=== PATIENT | female | born 2000 | race Caucasian/White ===

== ENCOUNTER → 2023-10-09 12:04 | Outpatient (REF) | payer BC, SELFPAY ==
[2023-10-09 15:08] LABS: % Basophils 0.5 % (0-2); % Eosinophils 0.9 % (0-6); % Immature Granulocytes 0.3 % (0-0.5); % Lymphocytes 21.7 % (20.5-51.1); % Monocytes 5.9 % (1.7-9.3); % Neutrophils 70.7 % (42.2-75.2); Absolute Eosinophils 0.1 10^3/uL (0-0.7); Absolute Lymphocytes 1.7 10^3/uL (1.2-3.4); Absolute Monocytes 0.5 10^3/uL (0.1-0.6); Absolute Neutrophils 5.5 10^3/uL (1.4-6.5); Hematocrit 37.1 % (37.0-47.0); Hemoglobin 12.1 g/dL (12.0-16.0); Mean Corp Hgb Conc. 32.6 g/dL (33.0-37.0); Mean Corpuscular Hgb 25.5 pg (27.0-31.0); Mean Corpuscular Volume 78.1 fL (81.0-99.0); Mean Platelet Volume 11.8 fL (7.4-10.4); Nucleated Red Blood Cells % 0 %; Platelet Count 297 10^3/uL (130-400); Red Blood Cell Count 4.75 10^6/uL (4.20-5.40); Red Cell Dist. Width 13.4 % (11.5-14.5); White Blood Cell Count 7.8 10^3/uL (4.8-10.8)
[2023-10-09 15:16] LABS: ALT (SGPT) 18 U/L (0-35); AST (SGOT) 25 U/L (14-36); Albumin 4.4 g/dl (3.5-5.0); Alkaline Phosphatase 66 U/L (38-126); Blood Urea Nitrogen 11 mg/dl (7-17); Calcium 9.8 mg/dl (8.4-10.2); Carbon Dioxide 23 mmol/L (22-30); Chloride 104 mmol/L (98-107); Glucose 83 mg/dl (70-99); Potassium 4.2 mmol/L (3.5-5.1); Sodium 140 mmol/L (135-145); Total Bilirubin 0.3 mg/dl (0.2-1.3); Total Protein 7.5 g/dl (6.3-8.2); eGFR > 60.00
[2023-10-11 10:56] LABS: Iron 58 ug/dl (37-170)
[2023-10-11 11:05] LABS: Percent Saturation 13 % (20-50); Total Iron Binding Capacity 427 ug/dl (265-497)
== END ==
LOC: HWRAD 12:04
PROVIDERS: ATTENDING PHYSICIAN Nurse Practitioner; REFERRING PHYSICIAN Internal Medicine
DX: R10.32 Left lower quadrant pain (principal); R11.0 Nausea; K92.1 Melena; R19.7 Diarrhea, unspecified
CPT/HCPCS: 36415; 74177; 80053; 83540; 83550; 85025; Q9967

== ENCOUNTER → 2023-10-23 11:34 | Outpatient (REF) | payer BC, SELFPAY | LOC: HWLAB 11:34 | PROVIDERS: ATTENDING PHYSICIAN Internal Medicine; FAMILY PHYSICIAN Nurse Practitioner | DX: K92.1 Melena (principal); R19.5 Other fecal abnormalities | CPT/HCPCS: 82653; 83993; 87045; 87046; 87328; 87329; 87427 ==

== ENCOUNTER → 2023-10-24 10:16 | Outpatient (REF) | payer BC, SELFPAY ==
[2023-10-24 12:17] LABS: Erythrocyte Sed Rate 45 mm/hour (0-20)
[2023-10-24 12:39] LABS: Ferritin 8.2 ng/ml (6.24-137)
[2023-10-25 11:44] LABS: tTG IgA Antibody 7.1 EU/ml (0-19)
[2023-10-25 23:09] LABS: IgA 109 mg/dl (70-400)
== END ==
LOC: HWLAB 10:16
PROVIDERS: ATTENDING PHYSICIAN Internal Medicine; FAMILY PHYSICIAN Nurse Practitioner
DX: R19.4 Change in bowel habit (principal); D64.9 Anemia, unspecified
CPT/HCPCS: 36415; 82728; 82784; 83516; 85652

== ENCOUNTER → 2023-10-31 10:35 | Outpatient (REF) | payer BC, SELFPAY ==
[2023-10-31 16:06] LABS: Free T3 3.37 pg/ml (2.77-5.27); Free T4 1.26 ng/dl (0.78-2.19)
[2023-10-31 16:20] LABS: TSH 1.05 uIU/ml (0.47-4.68)
[2023-11-02 16:13] LABS: Thyroglobulin Antibodies <0.9 IU/mL (0.0-4.0); Thyroid Peroxidase Ab (TPO) <0.3 IU/mL (0.0-9.0)
== END ==
LOC: HWLAB 10:35
PROVIDERS: ATTENDING PHYSICIAN Internal Medicine; FAMILY PHYSICIAN Nurse Practitioner
DX: R19.4 Change in bowel habit (principal)
CPT/HCPCS: 36415; 84439; 84443; 84481; 86140; 86376; 86800

== ENCOUNTER → 2023-11-02 06:25 | Day surgery (SDC) | payer BC, SELFPAY | LOC: GI 06:25 | PROVIDERS: ATTENDING PHYSICIAN Internal Medicine | DX: K52.9 Noninfective gastroenteritis and colitis, unspecified (principal) | CPT/HCPCS: 45380; 88305; 88342 ==

== ENCOUNTER → 2024-02-13 06:27 | Day surgery (SDC) | payer BC, SELFPAY | LOC: GI 06:27 | PROVIDERS: ATTENDING PHYSICIAN Internal Medicine | DX: K52.9 Noninfective gastroenteritis and colitis, unspecified (principal); K52.89 Other specified noninfective gastroenteritis and colitis | CPT/HCPCS: 45380; 88305 ==

== ENCOUNTER → 2024-02-27 06:33 | Outpatient (REF) | payer BC, SELFPAY ==
[2024-02-27 09:40] LABS: ALT (SGPT) 20 U/L (0-35); AST (SGOT) 24 U/L (14-36); Albumin 4.1 g/dl (3.5-5.0); Alkaline Phosphatase 54 U/L (38-126); Blood Urea Nitrogen 8 mg/dl (7-17); Calcium 9.2 mg/dl (8.4-10.2); Carbon Dioxide 28 mmol/L (22-30); Chloride 103 mmol/L (98-107); Glucose 90 mg/dl (70-99); Iron 46 ug/dl (37-170); Potassium 4.2 mmol/L (3.5-5.1); Sodium 142 mmol/L (135-145); Total Bilirubin 0.3 mg/dl (0.2-1.3); Total Protein 7.2 g/dl (6.3-8.2); eGFR > 60.00
[2024-02-27 09:41] LABS: % Basophils 0.6 % (0-2); % Eosinophils 1.7 % (0-6); % Immature Granulocytes 0.3 % (0-0.5); % Lymphocytes 35.6 % (20.5-51.1); % Monocytes 6.9 % (1.7-9.3); % Neutrophils 54.9 % (42.2-75.2); Absolute Basophils 0.1 10^3/uL (0-0.2); Absolute Eosinophils 0.1 10^3/uL (0-0.7); Absolute Lymphocytes 2.8 10^3/uL (1.2-3.4); Absolute Monocytes 0.5 10^3/uL (0.1-0.6); Absolute Neutrophils 4.3 10^3/uL (1.4-6.5); Hematocrit 37.7 % (37.0-47.0); Hemoglobin 11.5 g/dL (12.0-16.0); Mean Corp Hgb Conc. 30.5 g/dL (33.0-37.0); Mean Corpuscular Hgb 24.3 pg (27.0-31.0); Mean Corpuscular Volume 79.7 fL (81.0-99.0); Mean Platelet Volume 10.4 fL (7.4-10.4); Nucleated Red Blood Cells % 0 %; Platelet Count 315 10^3/uL (130-400); Red Blood Cell Count 4.73 10^6/uL (4.20-5.40); Red Cell Dist. Width 14.9 % (11.5-14.5); White Blood Cell Count 7.8 10^3/uL (4.8-10.8)
[2024-02-27 09:49] LABS: Percent Saturation 10 % (20-50); Total Iron Binding Capacity 431 ug/dl (265-497)
[2024-02-27 10:01] LABS: Vitamin D, 25-OH*** 37.5 ng/mL (30-80)
[2024-02-27 10:34] LABS: Vitamin B12 266 pg/ml (239-931)
[2024-02-27 10:37] LABS: Erythrocyte Sed Rate 50 mm/hour (0-20)
[2024-02-29 14:08] LABS: Quantiferon Mitogen minus NIL 9.98 IU/mL; Quantiferon NIL 0.02 IU/mL; Quantiferon Plus TB1 minus NIL 0.06 IU/mL (<=0.34); Quantiferon Plus TB2 minus NIL 0.05 IU/mL (<=0.34); Quantiferon TB Gold Plus Negative (Negative)
== END ==
LOC: HWLAB 06:33
PROVIDERS: ATTENDING PHYSICIAN Internal Medicine; FAMILY PHYSICIAN Internal Medicine
DX: K50.919 Crohn's disease, unspecified, with unspecified complications (principal)
CPT/HCPCS: 36415; 80053; 82306; 82607; 82728; 83540; 83550; 83993; 85025; 85652; 86140; 86480; 86704; 86706; 87340

== ENCOUNTER 2024-04-29 14:16 | Outpatient (RCR) | payer BC, SELFPAY ==
[2024-04-22 14:35] VITALS: BP 144/75
[2024-04-22] MEDS: INJECTAFER 265 MG IV (14:51)
[2024-04-22 15:28] VITALS: BP 143/78
[2024-04-29 14:43] LABS: % Basophils 0.5 % (0-2); % Eosinophils 0.9 % (0-6); % Immature Granulocytes 0.1 % (0-0.5); % Lymphocytes 22.3 % (20.5-51.1); % Monocytes 5.8 % (1.7-9.3); % Neutrophils 70.4 % (42.2-75.2); Absolute Eosinophils 0.1 10^3/uL (0-0.7); Absolute Lymphocytes 1.8 10^3/uL (1.2-3.4); Absolute Monocytes 0.5 10^3/uL (0.1-0.6); Absolute Neutrophils 5.6 10^3/uL (1.4-6.5); Hematocrit 37.2 % (37.0-47.0); Hemoglobin 11.9 g/dL (12.0-16.0); Mean Corpuscular Hgb 25.1 pg (27.0-31.0); Mean Corpuscular Volume 78.5 fL (81.0-99.0); Mean Platelet Volume 10.2 fL (7.4-10.4); Platelet Count 308 10^3/uL (130-400); Red Blood Cell Count 4.74 10^6/uL (4.20-5.40); Red Cell Dist. Width 15.2 % (11.5-14.5)
[2024-04-29] MEDS: INJECTAFER 265 MG IV (14:47)
[2024-04-29 15:03] VITALS: BP 136/77
[2024-04-29 15:47] VITALS: BP 124/75
== END 2024-04-30 09:03 | disposition home or self-care (01) ==
LOC: OID 14:16
PROVIDERS: ATTENDING PHYSICIAN Internal Medicine Hematology & Oncology; FAMILY PHYSICIAN Internal Medicine
DX: D50.9 Iron deficiency anemia, unspecified (principal); K50.818 Crohn's disease of both small and large intestine with other complication; D51.9 Vitamin B12 deficiency anemia, unspecified
CPT/HCPCS: 84100; 85025; 96365; J1439

== ENCOUNTER → 2024-05-10 14:41 | Outpatient (REF) | payer BC, SELFPAY | LOC: MRI 3T 14:41 | PROVIDERS: ATTENDING PHYSICIAN Internal Medicine; FAMILY PHYSICIAN Family Medicine | DX: D50.0 Iron deficiency anemia secondary to blood loss (chronic) (principal); K50.919 Crohn's disease, unspecified, with unspecified complications; R10.30 Lower abdominal pain, unspecified | CPT/HCPCS: 72197; 74183; A9575 ==

== ENCOUNTER → 2024-05-15 06:47 | Outpatient (REF) | payer BC, SELFPAY ==
[2024-05-15 09:28] LABS: % Basophils 0.3 % (0-2); % Eosinophils 1.3 % (0-6); % Immature Granulocytes 0.5 % (0-0.5); % Lymphocytes 23.7 % (20.5-51.1); % Monocytes 5.5 % (1.7-9.3); % Neutrophils 68.7 % (42.2-75.2); Absolute Eosinophils 0.1 10^3/uL (0-0.7); Absolute Lymphocytes 1.5 10^3/uL (1.2-3.4); Absolute Monocytes 0.3 10^3/uL (0.1-0.6); Absolute Neutrophils 4.3 10^3/uL (1.4-6.5); Hematocrit 37.3 % (37.0-47.0); Hemoglobin 12.2 g/dL (12.0-16.0); Mean Corp Hgb Conc. 32.7 g/dL (33.0-37.0); Mean Corpuscular Hgb 26.6 pg (27.0-31.0); Mean Corpuscular Volume 81.3 fL (81.0-99.0); Nucleated Red Blood Cells % 0 %; Platelet Count 219 10^3/uL (130-400); Red Blood Cell Count 4.59 10^6/uL (4.20-5.40); Red Cell Dist. Width 17.8 % (11.5-14.5); White Blood Cell Count 6.2 10^3/uL (4.8-10.8)
[2024-05-15 09:37] LABS: Phosphorus 2.2 mg/dl (2.5-4.5)
[2024-05-15 10:19] LABS: Erythrocyte Sed Rate 39 mm/hour (0-20)
[2024-05-15 10:20] LABS: TSH 2.38 uIU/ml (0.47-4.68)
[2024-05-15 18:07] LABS: Rheumatoid Agglutinin Less Than 10 IU (<10 IU)
[2024-05-15 18:48] LABS: HIV Combo Negative (Negative)
[2024-05-16 19:03] LABS: Hepatitis C Antibody Negative (Negative)
[2024-05-17 00:04] LABS: ANA, IgG Reflex to HEp-2 Detected (None Detected)
[2024-05-17 00:09] LABS: CCP Antibody IgG/IgA 4 Units (0-19)
[2024-05-17 09:52] LABS: HLA-B27 Negative (Negative)
[2024-05-18 02:27] LABS: ANA, HEp-2, IgG Detected (<1:80)
== END ==
LOC: HWLAB 06:47
PROVIDERS: ATTENDING PHYSICIAN Physician Assistant; FAMILY PHYSICIAN Internal Medicine; REFERRING PHYSICIAN Internal Medicine Hematology & Oncology
DX: D50.9 Iron deficiency anemia, unspecified (principal); D51.9 Vitamin B12 deficiency anemia, unspecified; K50.919 Crohn's disease, unspecified, with unspecified complications; Z68.30 Body mass index [BMI] 30.0-30.9, adult; E07.9 Disorder of thyroid, unspecified; K75.9 Inflammatory liver disease, unspecified; L73.2 Hidradenitis suppurativa; M06.4 Inflammatory polyarthropathy; M25.50 Pain in unspecified joint; R53.83 Other fatigue; Z11.4 Encounter for screening for human immunodeficiency virus [HIV]; Z22.7 Latent tuberculosis
CPT/HCPCS: 36415; 84100; 84443; 85025; 85652; 86038; 86039; 86140; 86200; 86430; 86803; 86812; 87389

== ENCOUNTER → 2024-06-04 06:33 | Outpatient (REF) | payer BC, SELFPAY ==
[2024-06-04 09:52] LABS: % Basophils 0.6 % (0-2); % Eosinophils 2.2 % (0-6); % Immature Granulocytes 0.3 % (0-0.5); % Lymphocytes 22.3 % (20.5-51.1); % Monocytes 7.1 % (1.7-9.3); % Neutrophils 67.5 % (42.2-75.2); Absolute Eosinophils 0.2 10^3/uL (0-0.7); Absolute Lymphocytes 1.5 10^3/uL (1.2-3.4); Absolute Monocytes 0.5 10^3/uL (0.1-0.6); Absolute Neutrophils 4.7 10^3/uL (1.4-6.5); Hematocrit 40.4 % (37.0-47.0); Hemoglobin 13.2 g/dL (12.0-16.0); Mean Corp Hgb Conc. 32.7 g/dL (33.0-37.0); Mean Corpuscular Hgb 27.3 pg (27.0-31.0); Mean Corpuscular Volume 83.5 fL (81.0-99.0); Mean Platelet Volume 10.5 fL (7.4-10.4); Nucleated Red Blood Cells % 0 %; Platelet Count 248 10^3/uL (130-400); Red Blood Cell Count 4.84 10^6/uL (4.20-5.40); Red Cell Dist. Width 16.6 % (11.5-14.5); White Blood Cell Count 6.9 10^3/uL (4.8-10.8)
[2024-06-04 10:04] LABS: Iron 91 ug/dl (37-170)
[2024-06-04 10:15] LABS: Percent Saturation 34 % (20-50); Total Iron Binding Capacity 266 ug/dl (265-497)
[2024-06-04 10:53] LABS: Vitamin B12 348 pg/ml (239-931)
[2024-06-05 19:02] LABS: ds-DNA Ab, IgG Reflex To Titer 4 IU (0-24)
[2024-06-05 22:23] LABS: Smith/RNP (ENA), IgG 50 Units (0-19)
[2024-06-05 23:45] LABS: Complement C3 164 mg/dl (88-165)
[2024-06-06 12:49] LABS: Anti-Xa Qualitative Interp Not Performed (Not Present); Anticoagulant Med Neutralizati Not Performed (Not Performed); Hexagonal Phospholipid Confirm Not Performed s (<=7.9); Neutralized PTT-LA Ratio Not Performed (<=1.20); Neutralized dRVTT Screen Ratio Not Performed (<=1.20); PTT-LA Ratio 1.02 (<=1.20); Prothrombin Time 13.6 s (12.0-15.5); Thrombin Time Not Performed s (<=19.5); dRVTT 1.1 Mix Ratio Not Performed (<=1.20); dRVTT Confirmation Ratio Not Performed (<=1.20); dRVTT Screen Ratio 1.16 (<=1.20)
[2024-06-07 01:22] LABS: SSA 52 (Ro)(ENA) Ab, IgG 1 AU/mL (0-40); SSA 60 (Ro)(ENA) Ab, IgG 0 AU/mL (0-40); SSB (La)(ENA) Ab, IgG 1 AU/mL (0-40); Scleroderma Antibody (Scl-70) 1 AU/mL (0-40)
== END ==
LOC: HWLAB 06:33
PROVIDERS: ATTENDING PHYSICIAN Internal Medicine Hematology & Oncology; FAMILY PHYSICIAN Internal Medicine; REFERRING PHYSICIAN Student in an Organized Health Care Education/Training Program
DX: K50.919 Crohn's disease, unspecified, with unspecified complications (principal); L73.2 Hidradenitis suppurativa; M25.50 Pain in unspecified joint; R53.83 Other fatigue; Z87.42 Personal history of other diseases of the female genital tract; D50.9 Iron deficiency anemia, unspecified; D51.9 Vitamin B12 deficiency anemia, unspecified; Z68.30 Body mass index [BMI] 30.0-30.9, adult
CPT/HCPCS: 36415; 82607; 82728; 83540; 83550; 85025; 85610; 85613; 85730; 86160; 86225; 86235

== ENCOUNTER → 2024-06-10 07:01 | Outpatient (REF) | payer BC, SELFPAY ==
[2024-06-10 10:08] LABS: Urine Albumin 1+ (Neg - Trace); Urine Bilirubin Negative (Negative); Urine Character Clear (Clear); Urine Color Yellow; Urine Glucose Negative (Negative); Urine Ketone Negative (Negative); Urine Leukocyte Negative (Negative); Urine Nitrite Negative (Negative); Urine Occult Blood 1+ (Negative); Urine Urobilinogen Negative (Neg - 1+)
[2024-06-10 10:18] LABS: Urine Calcium Oxalate Crystals Present
[2024-06-10 10:19] LABS: Urine Bacteria Few (Negative); Urine Red Blood Cell 0-2 /HPF (0-2)
[2024-06-10 11:02] LABS: Urine Protein 7 mg/dl
== END ==
LOC: HWLAB 07:01
PROVIDERS: ATTENDING PHYSICIAN Student in an Organized Health Care Education/Training Program; FAMILY PHYSICIAN Internal Medicine
DX: K50.919 Crohn's disease, unspecified, with unspecified complications (principal); L73.2 Hidradenitis suppurativa; M25.50 Pain in unspecified joint; R53.83 Other fatigue; Z87.42 Personal history of other diseases of the female genital tract
CPT/HCPCS: 81003; 81015; 82570; 84156

== ENCOUNTER 2024-06-24 10:40 | Outpatient (RCR) | payer BC, SELFPAY ==
[2024-06-24] VITALS (7 sets, daily range): BP systolic 109–128; BP diastolic 66–78
[2024-06-24] MEDS: SKYRIZI 260 MG IV (11:14)
== END 2024-06-25 08:41 | disposition home or self-care (01) ==
LOC: OID 10:40
PROVIDERS: ATTENDING PHYSICIAN Internal Medicine; FAMILY PHYSICIAN Internal Medicine
DX: K50.10 Crohn's disease of large intestine without complications (principal)
CPT/HCPCS: 96365; J2327

== ENCOUNTER 2024-07-22 10:39 | Outpatient (RCR) | payer BC, SELFPAY ==
[2024-07-22 10:50] VITALS: BP 131/65
[2024-07-22] MEDS: SKYRIZI 260 MG IV (10:58)
[2024-07-22 12:00] VITALS: BP 113/67
== END 2024-07-23 09:40 | disposition home or self-care (01) ==
LOC: OID 10:39
PROVIDERS: ATTENDING PHYSICIAN Internal Medicine; FAMILY PHYSICIAN Internal Medicine
DX: K50.10 Crohn's disease of large intestine without complications (principal)
CPT/HCPCS: 96365; J2327

== ENCOUNTER 2024-08-19 10:40 | Outpatient (RCR) | payer BC, SELFPAY ==
[2024-08-19 10:54] VITALS: BP 123/83
[2024-08-19] MEDS: SKYRIZI 260 MG IV (11:06)
== END 2024-08-20 12:26 | disposition home or self-care (01) ==
LOC: OID 10:40
PROVIDERS: ATTENDING PHYSICIAN Internal Medicine; FAMILY PHYSICIAN Internal Medicine
DX: K50.10 Crohn's disease of large intestine without complications (principal)
CPT/HCPCS: 96365; J2327

== ENCOUNTER → 2024-08-26 10:44 | Outpatient (REF) | payer BC, SELFPAY ==
[2024-08-26 16:08] LABS: Urine Albumin 1+ (Neg - Trace); Urine Bilirubin Negative (Negative); Urine Character Clear (Clear); Urine Color Yellow; Urine Glucose Negative (Negative); Urine Ketone Negative (Negative); Urine Leukocyte 3+ (Negative); Urine Nitrite Negative (Negative); Urine Occult Blood 2+ (Negative); Urine Specific Gravity 1.015 (<1.030); Urine Urobilinogen Negative (Neg - 1+)
[2024-08-26 16:13] LABS: ALT (SGPT) 22 U/L (0-35); AST (SGOT) 24 U/L (14-36); Albumin 4.4 g/dl (3.5-5.0); Alkaline Phosphatase 59 U/L (38-126); Blood Urea Nitrogen 11 mg/dl (7-17); Calcium 9.2 mg/dl (8.4-10.2); Carbon Dioxide 22 mmol/L (22-30); Chloride 109 mmol/L (98-107); Glucose 76 mg/dl (70-99); HDL Cholesterol 27 mg/dl; LDL Cholesterol, Calculated 109 mg/dl; Phosphorus 3.2 mg/dl (2.5-4.5); Potassium 4.5 mmol/L (3.5-5.1); Sodium 141 mmol/L (135-145); Total Bilirubin 0.4 mg/dl (0.2-1.3); Total Cholesterol 159 mg/dl (50-199); Total Protein 7.5 g/dl (6.3-8.2); Triglyceride 119 mg/dl (10-149); Very Low Density Lipoprotein 23 mg/dl (0-30); eGFR > 60.00
[2024-08-26 16:14] LABS: Creatine Phosphokinase 44 U/L (30-135); Iron 94 ug/dl (37-170)
[2024-08-26 16:18] LABS: % Basophils 0.6 % (0-2); % Eosinophils 1.1 % (0-6); % Immature Granulocytes 0.3 % (0-0.5); % Lymphocytes 24.9 % (20.5-51.1); % Monocytes 5.3 % (1.7-9.3); % Neutrophils 67.8 % (42.2-75.2); Absolute Eosinophils 0.1 10^3/uL (0-0.7); Absolute Lymphocytes 1.6 10^3/uL (1.2-3.4); Absolute Monocytes 0.3 10^3/uL (0.1-0.6); Absolute Neutrophils 4.3 10^3/uL (1.4-6.5); Hematocrit 39.2 % (37.0-47.0); Hemoglobin 13.2 g/dL (12.0-16.0); Mean Corp Hgb Conc. 33.7 g/dL (33.0-37.0); Mean Corpuscular Hgb 29.7 pg (27.0-31.0); Mean Corpuscular Volume 88.3 fL (81.0-99.0); Mean Platelet Volume 11.7 fL (7.4-10.4); Nucleated Red Blood Cells % 0 %; Platelet Count 241 10^3/uL (130-400); Red Blood Cell Count 4.44 10^6/uL (4.20-5.40); Red Cell Dist. Width 11.6 % (11.5-14.5); White Blood Cell Count 6.4 10^3/uL (4.8-10.8)
[2024-08-26 16:22] LABS: Percent Saturation 30 % (20-50); Total Iron Binding Capacity 305 ug/dl (265-497)
[2024-08-26 16:30] LABS: Urine Protein 8 mg/dl
[2024-08-26 16:42] LABS: Complement C3 142 mg/dl (88-165)
[2024-08-26 17:02] LABS: Urine Bacteria Moderate (Negative); Urine Squamous Cell 26-30 /LPF (Few)
[2024-08-26 17:06] LABS: Vitamin B12 253 pg/ml (239-931)
[2024-08-26 17:14] LABS: Erythrocyte Sed Rate 41 mm/hour (0-20)
[2024-08-29 03:14] LABS: ds-DNA Ab, IgG Reflex To Titer 8 IU (0-24)
[2024-08-29 08:59] LABS: Smith/RNP (ENA), IgG 45 Units (0-19)
== END ==
LOC: HWLAB 10:44
PROVIDERS: ATTENDING PHYSICIAN Student in an Organized Health Care Education/Training Program; FAMILY PHYSICIAN Internal Medicine; REFERRING PHYSICIAN Internal Medicine Hematology & Oncology
DX: D50.9 Iron deficiency anemia, unspecified (principal); D51.9 Vitamin B12 deficiency anemia, unspecified; K50.919 Crohn's disease, unspecified, with unspecified complications; Z68.30 Body mass index [BMI] 30.0-30.9, adult; Z00.00 Encounter for general adult medical examination without abnormal findings; L73.2 Hidradenitis suppurativa; M25.50 Pain in unspecified joint; R53.83 Other fatigue; Z87.42 Personal history of other diseases of the female genital tract
CPT/HCPCS: 36415; 80053; 80061; 81003; 81015; 82550; 82570; 82607; 82728; 83540; 83550; 84100; 84156; 85025; 85652; 86140; 86160; 86225; 86235

== ENCOUNTER → 2024-08-29 07:01 | Outpatient (REF) | payer BC, SELFPAY ==
[2024-08-29 09:36] LABS: Urine Albumin 1+ (Neg - Trace); Urine Bilirubin Negative (Negative); Urine Character Clear (Clear); Urine Color Yellow; Urine Glucose Negative (Negative); Urine Ketone Negative (Negative); Urine Leukocyte 2+ (Negative); Urine Nitrite Negative (Negative); Urine Occult Blood 3+ (Negative); Urine Urobilinogen Negative (Neg - 1+)
[2024-08-29 10:33] LABS: Urine Squamous Cell 21-25 /LPF (Few)
[2024-08-29 10:36] LABS: Urine Amorphous Seen
[2024-08-29 10:59] LABS: Urine Bacteria Many (Negative); Urine Calcium Oxalate Crystals Seen
[2024-08-29 11:00] LABS: Urine White Cell 16-20 /HPF (0-5)
== END ==
LOC: HWLAB 07:01
PROVIDERS: ATTENDING PHYSICIAN Internal Medicine; REFERRING PHYSICIAN Student in an Organized Health Care Education/Training Program
DX: N39.0 Urinary tract infection, site not specified (principal)
CPT/HCPCS: 81003; 81015; 87086

== ENCOUNTER → 2024-09-05 14:10 | Outpatient (REF) | payer BC, SELFPAY | LOC: HWRAD 14:10 | PROVIDERS: ATTENDING PHYSICIAN Student in an Organized Health Care Education/Training Program; FAMILY PHYSICIAN Internal Medicine | DX: R31.29 Other microscopic hematuria (principal) | CPT/HCPCS: 76770 ==

== ENCOUNTER → 2024-11-25 10:25 | Outpatient (REF) | payer BC, SELFPAY ==
[2024-11-25 11:34] LABS: Hematocrit 39.9 % (37.0-47.0); Hemoglobin 13.6 g/dL (12.0-16.0); Mean Corp Hgb Conc. 34.1 g/dL (33.0-37.0); Mean Corpuscular Volume 87.1 fL (81.0-99.0); Nucleated Red Blood Cells % 0 %; Platelet Count 240 10^3/uL (130-400); Red Cell Dist. Width 11.9 % (11.5-14.5)
[2024-11-25 11:54] LABS: ALT (SGPT) 14 U/L (0-35); AST (SGOT) 22 U/L (14-36); Albumin 4.7 g/dl (3.5-5.0); Alkaline Phosphatase 47 U/L (38-126); Blood Urea Nitrogen 12 mg/dl (7-17); Calcium 9.4 mg/dl (8.4-10.2); Carbon Dioxide 24 mmol/L (22-30); Chloride 105 mmol/L (98-107); Glucose 97 mg/dl (70-99); Iron 102 ug/dl (37-170); Potassium 4.2 mmol/L (3.5-5.1); Sodium 140 mmol/L (135-145); Total Protein 7.8 g/dl (6.3-8.2); eGFR > 60.00
[2024-11-25 12:03] LABS: C-Reactive Protein 13.70 mg/L (0.0-10.00); Total Iron Binding Capacity 318 ug/dl (265-497)
[2024-11-25 12:38] LABS: Ferritin 279.0 ng/ml (6.24-137)
[2024-11-25 12:52] LABS: Vitamin B12 328 pg/ml (239-931)
[2024-11-27 02:30] LABS: ds-DNA Ab, IgG Reflex To Titer 12 IU (0-24)
== END ==
LOC: HWLAB 10:25
PROVIDERS: ATTENDING PHYSICIAN Internal Medicine Hematology & Oncology; FAMILY PHYSICIAN Internal Medicine; OTHER PHYSICIAN Internal Medicine; REFERRING PHYSICIAN Student in an Organized Health Care Education/Training Program
DX: K50.919 Crohn's disease, unspecified, with unspecified complications (principal); L73.2 Hidradenitis suppurativa; M25.50 Pain in unspecified joint; R31.29 Other microscopic hematuria; R53.83 Other fatigue; R76.8 Other specified abnormal immunological findings in serum; Z51.81 Encounter for therapeutic drug level monitoring; Z87.42 Personal history of other diseases of the female genital tract; D50.9 Iron deficiency anemia, unspecified; D51.9 Vitamin B12 deficiency anemia, unspecified; Z68.30 Body mass index [BMI] 30.0-30.9, adult
CPT/HCPCS: 36415; 80053; 82085; 82550; 82607; 82728; 83540; 83550; 84100; 85025; 85652; 86140; 86160; 86225

== ENCOUNTER → 2025-02-19 10:52 | Outpatient (REF) | payer BC, SELFPAY ==
[2025-02-19 15:46] LABS: Hematocrit 41.5 % (37.0-47.0); Hemoglobin 13.7 g/dL (12.0-16.0); Mean Corp Hgb Conc. 33.0 g/dL (33.0-37.0); Mean Corpuscular Volume 87.6 fL (81.0-99.0); Nucleated Red Blood Cells % 0 %; Platelet Count 231 10^3/uL (130-400); Red Cell Dist. Width 11.6 % (11.5-14.5)
[2025-02-19 15:47] LABS: Urine Character Slightly Cloudy (Clear)
[2025-02-19 16:02] LABS: C-Reactive Protein 12.30 mg/L (0.0-10.00)
[2025-02-19 16:06] LABS: ALT (SGPT) 15 U/L (0-35); AST (SGOT) 25 U/L (14-36); Albumin 4.6 g/dl (3.5-5.0); Alkaline Phosphatase 41 U/L (38-126); Blood Urea Nitrogen 10 mg/dl (7-17); Calcium 9.3 mg/dl (8.4-10.2); Carbon Dioxide 26 mmol/L (22-30); Chloride 105 mmol/L (98-107); Glucose 81 mg/dl (70-99); Potassium 4.4 mmol/L (3.5-5.1); Sodium 140 mmol/L (135-145); Total Protein 7.7 g/dl (6.3-8.2); eGFR > 60.00
[2025-02-19 17:54] LABS: Urine Squamous Cell >30 /LPF (Few)
== END ==
LOC: HWLAB 10:52
PROVIDERS: ATTENDING PHYSICIAN Student in an Organized Health Care Education/Training Program; FAMILY PHYSICIAN Internal Medicine; REFERRING PHYSICIAN Internal Medicine
DX: K50.919 Crohn's disease, unspecified, with unspecified complications (principal); L73.2 Hidradenitis suppurativa; M25.50 Pain in unspecified joint; R10.9 Unspecified abdominal pain; R31.29 Other microscopic hematuria; R53.83 Other fatigue; R76.89 Other specified abnormal immunological findings in serum; Z51.81 Encounter for therapeutic drug level monitoring; Z79.899 Other long term (current) drug therapy; Z87.42 Personal history of other diseases of the female genital tract
CPT/HCPCS: 36415; 80053; 81003; 81015; 82570; 84156; 85025; 85652; 86140; 86160; 86225

== ENCOUNTER → 2025-02-20 10:04 | Outpatient (REF) | payer BC, SELFPAY | LOC: HWLAB 10:04 | PROVIDERS: ATTENDING PHYSICIAN Family Medicine | DX: R39.9 Unspecified symptoms and signs involving the genitourinary system (principal) | CPT/HCPCS: 87086 ==

== ENCOUNTER → 2025-02-25 11:00 | Outpatient (REF) | payer BC, SELFPAY ==
[2025-02-25 15:32] LABS: Hematocrit 43.2 % (37.0-47.0); Hemoglobin 14.2 g/dL (12.0-16.0); Mean Corp Hgb Conc. 32.9 g/dL (33.0-37.0); Mean Corpuscular Volume 88.3 fL (81.0-99.0); Nucleated Red Blood Cells % 0 %; Platelet Count 231 10^3/uL (130-400); Red Cell Dist. Width 11.7 % (11.5-14.5)
[2025-02-25 15:40] LABS: ALT (SGPT) 15 U/L (0-35); AST (SGOT) 24 U/L (14-36); Albumin 4.8 g/dl (3.5-5.0); Alkaline Phosphatase 44 U/L (38-126); Blood Urea Nitrogen 13 mg/dl (7-17); Calcium 9.4 mg/dl (8.4-10.2); Carbon Dioxide 27 mmol/L (22-30); Chloride 102 mmol/L (98-107); Glucose 65 mg/dl (70-99); Iron 74 ug/dl (37-170); Potassium 4.3 mmol/L (3.5-5.1); Sodium 139 mmol/L (135-145); Total Protein 7.8 g/dl (6.3-8.2); eGFR > 60.00
[2025-02-25 15:49] LABS: Total Iron Binding Capacity 343 ug/dl (265-497)
[2025-02-25 16:13] LABS: Ferritin 268.0 ng/ml (6.24-137)
[2025-02-25 16:27] LABS: Vitamin B12 213 pg/ml (239-931)
[2025-02-27 10:33] LABS: Lyme Antibody Screen, EIA Negative (Negative)
[2025-02-28 02:16] LABS: EBV-EA (D) Ab IgG <5.0 U/mL (<=8.9); EBV-NA IgG 14.6 U/mL (<=17.9); EBV-VCA IgG Antibodies <10.0 U/mL (<=17.9); EBV-VCA IgM Antibodies <10.0 U/mL (<=35.9)
== END ==
LOC: HWLAB 11:00
PROVIDERS: ATTENDING PHYSICIAN Internal Medicine Hematology & Oncology; FAMILY PHYSICIAN Internal Medicine
DX: D50.9 Iron deficiency anemia, unspecified (principal); D51.9 Vitamin B12 deficiency anemia, unspecified; K50.919 Crohn's disease, unspecified, with unspecified complications; Z68.30 Body mass index [BMI] 30.0-30.9, adult; Z20.828 Contact with and (suspected) exposure to other viral communicable diseases
CPT/HCPCS: 36415; 80053; 82607; 82728; 83540; 83550; 84100; 85025; 86308; 86618; 86663; 86664; 86665

== ENCOUNTER → 2025-04-09 07:20 | Outpatient (REF) | payer BC, SELFPAY | LOC: HWLAB 07:20 | PROVIDERS: ATTENDING PHYSICIAN Internal Medicine Hematology & Oncology; FAMILY PHYSICIAN Internal Medicine | DX: D50.9 Iron deficiency anemia, unspecified (principal); D51.9 Vitamin B12 deficiency anemia, unspecified; K50.919 Crohn's disease, unspecified, with unspecified complications | CPT/HCPCS: 36415; 84443 ==